=== PATIENT | female | born 1980 | race Caucasian/White ===

== ENCOUNTER → 2016-08-14 | Outpatient (CLI) | payer BC ==
[~2016-08-14] MED LIST: ACET-749 PO; BCPILLS PO; CYAN100020 PO; DOCU-94 PO; FERR1TAB23 PO; IBUP-1050 PO; MULTTAB58 PO; PRENTAB89 PO
== END | disposition home or self-care (01) ==
LOC: C.LAB1850 10:27
PROVIDERS: ATTEND Obstetrics & Gynecology
DX: O26.899 Other specified pregnancy related conditions, unspecified trimester (principal)

== ENCOUNTER → 2016-08-16 | Outpatient (CLI) | payer BC | END | disposition home or self-care (01) | LOC: C.LAB1850 15:31 | PROVIDERS: ATTEND Obstetrics & Gynecology | DX: O26.899 Other specified pregnancy related conditions, unspecified trimester (principal); Z3A.00 Weeks of gestation of pregnancy not specified ==

== ENCOUNTER → 2016-08-29 | Outpatient (CLI) | payer BC ==
[2016-08-29 15:59] LABS: URINE APPEARANCE TURBID (CLEAR); URINE BILIRUBIN NEG (NEG); URINE COLOR DK YELLOW; URINE EPITHELIAL CELL AUTO 20-30 /lpf (0-5); URINE NITRITE NEG (NEG); URINE PH 5.5 (4.5-7.5); URINE SPECIFIC GRAVITY 1.027 (1.000-1.030); UROBILINOGEN NEG (NEG)
[2016-08-29 16:09] LABS: MANUAL MICROSCOPIC REQUIRED? NO; REVIEW REQ? NO
== END | disposition home or self-care (01) ==
LOC: C.LABSPEC 15:25
PROVIDERS: ATTEND Obstetrics & Gynecology
DX: O09.519 Supervision of elderly primigravida, unspecified trimester (principal)

== ENCOUNTER → 2016-09-07 | Outpatient (CLI) | payer BC | END | disposition home or self-care (01) | LOC: C.PAPS 10:28 | PROVIDERS: ATTEND Obstetrics & Gynecology | DX: O09.511 Supervision of elderly primigravida, first trimester (principal); R87.616 Satisfactory cervical smear but lacking transformation zone ==

== ENCOUNTER → 2016-09-07 | Outpatient (CLI) | payer BC ==
[2016-09-07 10:56] LABS: BASO % 0.8 %; BASO ABS # 0.05 K/uL (0-0.2); COMPLETE YES; EOS % 1.2 %; IG% 0.3 %; LYMPH % 24.5 %; LYMPH ABS # 1.58 K/uL (1.2-3.4); MEAN CORPUSCULAR HEMOGLOBIN 30.9 pg (25-34); MEAN CORPUSCULAR HGB CONC 33.2 g/dl (32-36); MEAN PLATELET VOLUME 10.7 fL (7.4-10.4); MONO % 8.4 %; NEUT % 64.8 %; PLATELET COUNT 267 K/uL (130-400); RED BLOOD COUNT 3.98 M/uL (4.2-5.4); WHITE BLOOD COUNT 6.44 K/uL (4.8-10.8)
[2016-09-09 02:49] LABS: CHLAMYDIA TRACH RNA*** NOT DETECTED (NOT DETECTED); GC (NEIS GONORRHOEAE)RNA** NOT DETECTED (NOT DETECTED)
== END | disposition home or self-care (01) ==
LOC: C.LAB1850 09:11
PROVIDERS: ATTEND Obstetrics & Gynecology
DX: O09.519 Supervision of elderly primigravida, unspecified trimester (principal); Z3A.00 Weeks of gestation of pregnancy not specified

== ENCOUNTER → 2016-10-26 | Outpatient (CLI) | payer BC ==
[2016-10-26 13:44] LABS: GTGD 50 Grams
[2016-10-29 17:16] LABS: AFP CONCENTRATION 41.9 NG/ML; AFPTS GESTATIONAL AGE 16.1 WEEKS; AFPTS INSULIN DEP DIABETIC? NO; AFPTS MATERNAL WT 122 LBS; ALPHA-FETOPROTEIN RACE CAUCASIAN=W; HISTORY OF NTD NO; REPEAT SAMPLE? NO
== END | disposition home or self-care (01) ==
LOC: C.LAB1850 11:23
PROVIDERS: ATTEND Obstetrics & Gynecology
DX: O09.512 Supervision of elderly primigravida, second trimester (principal); Z3A.00 Weeks of gestation of pregnancy not specified

== ENCOUNTER → 2017-01-18 | Outpatient (CLI) | payer BC ==
[2017-01-18 17:52] LABS: MANUAL MICROSCOPIC REQUIRED? NO; REVIEW REQ? NO; URINE APPEARANCE CLEAR (CLEAR); URINE BILIRUBIN NEG (NEG); URINE COLOR YELLOW; URINE NITRITE NEG (NEG); UROBILINOGEN NEG (NEG)
== END | disposition home or self-care (01) ==
LOC: C.LABSPEC 17:25
PROVIDERS: ATTEND Obstetrics & Gynecology
DX: O09.513 Supervision of elderly primigravida, third trimester (principal)

== ENCOUNTER → 2017-01-18 | Outpatient (CLI) | payer BC ==
[2017-01-18 16:32] LABS: HEMATOCRIT 35.9 % (37-47)
[2017-01-18 19:08] LABS: GTGD 50 Grams
== END | disposition home or self-care (01) ==
LOC: C.LAB1850 15:28
PROVIDERS: ATTEND Obstetrics & Gynecology
DX: O09.513 Supervision of elderly primigravida, third trimester (principal)

== ENCOUNTER 2017-01-22 13:58 | Emergency (ER) | payer BC ==
[~2017-01-22] VITALS: Ht 165.1 cm; Wt 59.3 kg
[~2017-01-22 13:58] MED LIST changes: -ACET-749 PO; -DOCU-94 PO; -FERR1TAB23 PO; -PRENTAB89 PO
[2017-01-22 14:02] VITALS: Ht 165.1 cm; Wt 59.3 kg
--- NOTE | 2017-01-22 15:00 | EMERGENCY ROOM VISIT NOTE ---
History First contact with patient: 14:18 Chief Complaint: HEAD INJURY (MINOR) Stated Complaint: HIT HEAD, HEADACHE, VISION CHANGES History of Present Illness The patient is a 36 year old 28+5 week female who presents to the Emergency Room with complaints of head injury that started after hitting her head around 3am. Her headache started an hour after this but she managed to get to sleep an hour later. Then woke up with 6-7/10 severity headache. Pain has been persistent across the front of her head since then, bilateral temples. No LOC, remembers full event. She has associated fatigue, sensitivity to light and feels more sleepy than normal - although she notes these symptoms may also be related to her . She denies any dizziness, balance problems, vision problems, sensitivity to noise, numbness/tingling, fogginess, drowsiness, trouble falling asleep, irritability, sadness, mood change, nervousness, difficulty concentrating, difficulty remembering. Had concussion 2 years previously and it feels the same as that. No nausea or vomiting. No leg or arm weakness. Hit in face with volleyball 2 years previously - headache lasted for several days then concentration problems after that. Hx of migraines and tension headache. None during . Review of Systems See HPI for pertinent positives & negatives. A total of 10 systems reviewed and were otherwise negative. Past Medical/Surgical History Medical Problems: (1) Closed head injury with concussion Social History Smoking Status: Never Smoker Current/Historical Medications Scheduled Multivit-Min W/Fe-Fa ( And Iron), 1 TAB PO QAM Allergies Coded Allergies: Ciprofloxacin (Verified Allergy, Intermediate, RASH, 01/22/17) Penicillins (Verified Allergy, Intermediate, RASH, 01/22/17) Physical Exam Vital Signs Date Time Temp Pulse Resp B/P (MAP) Pulse Ox O2 Delivery O2 Flow Rate FiO2 01/22/17 14:02 36.7 89 16 93/69 97 Room Air Physical Exam VITAL SIGNS: were reviewed as above GENERAL: no acute distress SKIN: Warm dry and pink, no rashes HEAD: Normocephalic and atraumatic EYES: extraocular muscles intact without diplopia or pain, pupils equal and reactive to light, Panoptic ophthalmoscope showed sharp optic discs b/l. OROPHARYNX: non erythematous, clear and moist NECK: Supple, no adenopathy or meningismus LUNGS: No respiratory distress, clear to auscultation, no accessory muscle use HEART: Regular rate and rhythm, heart sounds 1+2, no murmurs ABDOMEN: Soft and nontender, bowel sounds normal, heart sounds present, consistent fundal height for 28 weeks EXTREMITIES: Warm and well perfused, no calf tenderness/swelling, no pedal edema. NEUROLOGICALLY: Awake alert and oriented without focal deficit. Cranial nerves 2 -12 intact. Cerebellar testing is within normal limits. There is no nystagmus. There is no facial droop. Speech is clear. Vision is grossly normal. Upper and lower limb motor and sensory examination intact. MUSCULOSKELETAL: Good muscle tone. No evidence of trauma Standardized assessment of concussion (SAC) Orientation 12/07 Immediate memory Concentration 10/07 Delayed recall 10/07 Total Medical Decision & Procedures ED Course 14:18 Complete history and physical performed 14:[address] Palomo who separately performed history and examination 15:20 Reassessed patient and discussed diagnosis and management plan for concussion. Stable for discharge. Medical Decision Prior records/ancillary studies reviewed. Triage Nursing notes reviewed. Additional history obtained from patient. The patient's history was concerning for traumatic head injury Differential diagnosis: Etiologies such as concussion, contusion, fracture, subdural hematoma, epidural hematoma, intraparenchymal hemorrhage, as well as other traumatic pathologies were entertained. Physical examination findings: As above. ER treatment provided: P.o. Tylenol 650mg PO It appears the patient has a concussion. I discussed the risks and the benefits of CT scanning. Clinically the patient is doing well and does not appear to have a significant underlying injury. The patient felt comfortable with conservative observation with the understanding if the clinical picture change that imaging may be necessary at a later time. I gave my usual and customary discussion regarding this issue. By the evaluation outlined above emergent etiologies such as fracture, subdural hematoma, epidural hematoma, intraparenchymal hemorrhage, as well as others were deemed relatively unlikely. The patient and her were informed about the findings as listed above. All questions were answered and she pleased with the management plan. Return instructions were outlined and the patient was discharged in stable condition. Outpatient Prescription Management: Acetaminophen 650mg PO PRN QID for pain. Referral: The patient was referred back to their primary care physician for follow-up in 2 to 3 days for a recheck of the current condition. Impression Primary Impression: Concussion Departure Information Dispostion Home / Self-Care Condition GOOD Referrals RV. Linares MD (PCP) Patient Instructions My [facility] Additional Instructions CONCUSSION DISCHARGE INSTRUCTIONS: What is a concussion? A concussion is a disturbance in the function of the brain caused by a direct or indirect force to the head. It results in a variety of symptoms like: headache, balance problems, nausea, vomiting, vision problems, hearing problems/ringing, drowsiness, irritability, and/or difficulty concentrating or remembering. A concussion may, or may not involve memory problems or loss of consciousness. Concussion Instructions: Stop and stay away from ALL physical activity until you are symptom free from: Headaches Balance problems Feeling "dinged" Poor concentration Drowsy Fatigued Rest and avoid strenuous activities for the next few days. Get 8-10 hours of sleep per night. Limit activities that involve significant concentration and attention during this time to speed your recovery. This includes studying, attending school, playing video games, and heavy reading. Your brain needs to rest. Eat right and eat often. Now is the time to feed your brain. Well balanced diets that avoid high sugar foods, sodas, caffeine, etc. are better for your brain. NO ALCOHOL OR DRUGS! Avoid stimulants like caffeine, red bull, mountain dew, "energy" drinks, etc. Tylenol(acetaminophen) may be used for headaches. Use 650g every 6 hours as needed. Avoid using more than 3250mg in a 24 hour period. Stepwise return to sports or exercise: You may progress to the next step after 24 hours if you are symptom free. If you experience symptoms, you must return to the previous stage and try again after another 24 hours of rest and being symptom free. Best case scenario is full contact game play in 7 days from the time of injury. Remember repeat concussions are worse than the first. Time invested in recovery will allow for better performance and less downtime in the future. If you have any questions see your hop trainer or make an appointment to see one of the team physicians. 1) No activity, complete rest for 3 days. Once all symptoms have resolved, report to the team physician or hop trainer to be cleared to progress to step 2. 2) Start light aerobic exercise, such as walking or stationary cycling, no resistance training permitted.(Day 4) 3) Sport specific exercises. Add light resistance slowly. Go slow to allow your body to readapt. (Day 5) 4) Non-contact full speed practice. (Day 6) 5) Full contact practice and/or game play.(Day 7) FOLLOW UP INSTRUCTIONS: You should have a follow up with your primary doctor in 3-5 days regarding your injury. POST CONCUSSIVE SYNDROME: Occasionally patients can experience a postconcussive syndrome which includes prolonged headaches and memory difficulties. This may occur over the next several days, weeks or rarely, even months. It is important to have a primary care physician follow-up in order to help if the situation develops. Problems could arise over the next 24 to 48 hours. You should not be left alone and MUST go to the hospital immediately if you: -Have a headache that suddenly gets worse. -Are very drowsy or cannot be woken up from sleep. -Can't recognize people or places. -Have repeated vomiting. -Behave unusually, seemed confused, or start acting irritable. -Have a seizure (arms and legs start jerking uncontrollably). -Have weak or numb arms or legs. -Are unsteady on your feet -Experience slurred speech or difficulty speaking. Resident Tracking Resident Involvement: Resident Care Provided Care Provided: Adult ED Problem Qualifiers Primary Impression: Concussion Encounter type: initial encounter Loss of consciousness presence/duration: without LOC Qualified Codes: S06.0X0A - Concussion without loss of consciousness, initial encounter
[2017-01-22] MEDS ORDERED: ACETAMINOPHEN 325 MG TAB PO STA (15:01)
[2017-01-22] MEDS ORDERED: PRENTAB89 PO (15:21)
--- NOTE | 2017-01-22 15:24 | EMERGENCY ROOM VISIT NOTE ---
ED Visit Note First contact with patient: 14:18 Resident Physician Supervision Note: I was present with Dr. Hitchcock during the history and exam. I discussed the case with the resident and agree with the findings and plan as documented in the note. Documented By: Preston Palomo
[2017-01-22 16:30] VITALS: BP 99/67; PULSE 87; TEMP 36.7; O2SAT 97
== END 2017-01-22 16:30 | disposition home or self-care (01) ==
LOC: C.EDB 14:01 → C.EDA 16:30
DX: S06.0X0A Concussion without loss of consciousness, initial encounter (principal); Z3A.28 28 weeks gestation of pregnancy; W22.8XXA Striking against or struck by other objects, initial encounter

== ENCOUNTER → 2017-03-21 | Outpatient (CLI) | payer BC ==
[~2017-03-21] MED LIST changes: +ACET-749 PO; -BCPILLS PO; -CYAN100020 PO; +DOCU-94 PO; +FERR1TAB23 PO; -IBUP-1050 PO; -MULTTAB58 PO; +PRENTAB89 PO
== END | disposition home or self-care (01) ==
LOC: C.LABSPEC 17:37
PROVIDERS: ATTEND Obstetrics & Gynecology
DX: O09.513 Supervision of elderly primigravida, third trimester (principal); Z3A.00 Weeks of gestation of pregnancy not specified

== ENCOUNTER 2017-04-16 05:16 | Inpatient (IN) | payer BC ==
[~2017-04-16] VITALS: Ht 165.1 cm; Wt 64.5 kg
[~2017-04-16 05:16] MED LIST changes: -ACET-749 PO; -DOCU-94 PO; -FERR1TAB23 PO
[2017-04-16] MEDS ORDERED: LACTATED RINGER'S 1000ML 1,000 ML IV PRN (05:38)
[2017-04-16] MEDS ORDERED: LACTATED RINGER'S 1000ML 1,000 ML IV SCH (05:38)
[2017-04-16 06:08] LABS: MEAN CELL VOLUME 96.2 fL (80-100); MEAN CORPUSCULAR HEMOGLOBIN 33.7 pg (25-34); PLATELET COUNT 196 K/uL (130-400); RED BLOOD COUNT 4.16 M/uL (4.2-5.4); WHITE BLOOD COUNT 12.64 K/uL (4.8-10.8)
[2017-04-16 06:25] VITALS: Ht 165.1 cm; Wt 64.5 kg
[2017-04-16] MEDS ORDERED: EpHEDrine SULFATE INJ 50 MG/ML AMP ONE (06:34)
[2017-04-16] MEDS ORDERED: BUPIVACAINE 0.25% 30 ML VIAL ONE (06:34)
[2017-04-16] MEDS ORDERED: FENTANYL 2MCG/ML ROPIV 1.25MG/ML 100ML BAG EPI ONE (06:34)
[2017-04-16] MEDS ORDERED: FENTANYL CITRATE INJ 50 MCG/1 ML 2 ML VIAL ONE (06:35)
[2017-04-16] MEDS ORDERED: LACTATED RINGER'S 1000ML 500 ML IV PRN ×2 (07:55→09:19)
[2017-04-16] MEDS ORDERED: NALOXONE HCL INJ 1 MG in SODIUM CHLORIDE 0.9% 1000ML 1,000 ML IV PRN (07:55)
[2017-04-16] MEDS ORDERED: PROMETHAZINE HCL INJ 25 MG in SODIUM CHLORIDE 0.9% 50ML 50 ML IV PRN (08:00)
[2017-04-16] MEDS ORDERED: ONDANSETRON INJ 2 MG/ML 2 ML VIAL IV PRN (08:00)
[2017-04-16] MEDS ORDERED: NALOXONE HCL INJ 0.4 MG/1 ML VIAL/CARP IV PRN (08:00)
[2017-04-16] MEDS ORDERED: FENTANYL 2MCG/ML ROPIV 1.25MG/ML 100ML BAG EPI PRN (08:00)
[2017-04-16] MEDS ORDERED: NALBUPHINE HCL INJ 10 MG/ML AMP IV PRN (08:00)
[2017-04-16] MEDS ORDERED: EpHEDrine SULFATE INJ 50 MG/ML AMP IV PRN (08:00)
[2017-04-16] MEDS ORDERED: DiphenhydrAMINE HCL 50 MG/ML VIAL IV PRN (08:00)
[2017-04-16] MEDS ORDERED: OXYTOCIN 30 UNITS/500ML NSS IV PRN ×2 (09:30→12:45)
[2017-04-16] MEDS ORDERED: BENZOCAINE 20% AER SPR 82.5 GM CAN EXT PRN (12:45)
[2017-04-16] MEDS ORDERED: DIPHTHERIA/TETANUS/PERTUSSIS 0.5 ML SYR/VIAL IM. ONE (12:45)
[2017-04-16] MEDS ORDERED: ACETAMINOPHEN 325 MG TAB PO PRN (12:45)
[2017-04-16] MEDS ORDERED: SUPERCREAM 0.870 % 15GM JAR EXT PRN (12:45)
[2017-04-16] MEDS ORDERED: ACETAMINOPHEN/CODEINE 300/30MG TAB PO PRN (12:45)
[2017-04-16] MEDS ORDERED: OXYTOCIN INJ 20 UNITS in LACTATED RINGER'S 1000ML 1,000 ML IV SCH (12:45)
[2017-04-16] MEDS ORDERED: LANOLIN OINT EXT PRN ×2 (12:45)
[2017-04-16] MEDS ORDERED: HYDROCORTISONE ACETATE 25 MG SUPP PR PRN (12:45)
[2017-04-16] MEDS ORDERED: MISOPROSTOL 200 MCG TAB PR ONE (13:00)
[2017-04-16 13:25] LABS: HEMATOCRIT 30.9 % (37-47)
--- NOTE | 2017-04-16 13:32 | Vaginal Delivery Summary ---
Vaginal Delivery Summary The patient's heart rate monitor notably had deep decelerations. For that reason a vaginal exam was performed revealing complete dilation, complete effacement and +3 station. Second stage was begun. Patient was repositioned and oxygen was applied. Pitocin was discontinued. During pushing, variable decelerations sometimes to the 60s were noted. The patient continued her maternal expulsive efforts. With continued deep variable decelerations the patient was readied for vacuum-assisted vaginal delivery. Her bladder had been drained. Informed consent was obtained. Meconium had previously been noted. Pediatrics was in attendance. The Kiwi vacuum was applied. Over one push and one pull of the vacuum with no pop offs, the cephalic was delivered. A loose nuchal 1 was noted and reduced. Shoulders and body were delivered with ease and a body cord was noted. The was vigorous and cried at . Cord was doubly clamped and cut on the maternal abdomen. The was taken to the radiant warmer for drying and attention. Cord blood and cord gases were obtained. Attention was turned to the patient's vagina where bilateral sulcal tears and a partial third-degree laceration was noted. Lateral sulcal tears were begun to be repaired with 3-0 Vicryl. Visualization was obtained using a retractor. The anal sphincter capsule was reapproximated with interrupted sutures of 2-0 Vicryl. During the course of this repair the placenta seemingly was ready for delivery. This was suspected due to increased bleeding. With traction on the umbilical cord the placenta was delivered however was only partially delivered. The operators hand was placed into the uterine cavity and the uterus was cleared of remaining placental tissue and membranes. Bimanual massage took place. IV dilute Pitocin was given. Hemostasis was inadequate and therefore 800 g of rectal Cytotec was administered. The uterus was swept with the tape edge machine operator's hand at least 2 additional times to ensure removal of any retained products of conception. There was one area of concern in the left aspect of the uterus for possible retained tissue. For that reason the anterior lip of the cervix was grasped with a ring forcep and a gentle curettage took place with the enrique curet. Using ring forceps the cervix was also inspected circumferentially with no evidence of lacerations. No significant remaining tissue was removed. The uterine tone began to improve. Lacerations were reinspected and the sulcal tears need to be reapproximated with 3-0 Vicryl. The anal capsule had already been supported and no sutures remained intact. The remainder of the perineal repair took place in the usual fashion with 3-0 Vicryl. During the course of this hemorrhage the patient's blood pressure dropped significantly. Anesthesia was by the bedside and administered ephedrine. A stat H&H was ordered as well as a type and screen. EBL 800 cc's. Bojorquez catheter was placed to evaluate urine output and also to keep the bladder contracted. We await the results of the H&H and some serial blood pressures which had improved and closely monitor the patient. Given the uterine exploration times multiple, the patient will be given IV antibiotics for 24 hours.
[2017-04-16] MEDS ORDERED: CEFAZOLIN IV 2,000 MG in DEXTROSE 5% 50ML 50 ML IV ONE (14:00)
--- NOTE | 2017-04-16 14:47 | Anesthesia Procedure Note ---
Anesthesia Epidural Removal Nt Date & Time Apr 16, 2017 at 14:47 Vital Signs Pain Intensity: 9.0 Notes Mental Status: alert / awake / arousable, participated in evaluation Nausea / Vomiting: adequately controlled Pain: adequately controlled Airway Patency, RR, SpO2: stable & adequate BP & HR: stable & adequate Hydration State: stable & adequate Neuraxial Anesthesia: was administered, sensory block is resolving Anesthetic Complications: no major complications apparent, pt satisfied with anesthetic care Epidural: removed without complications, with tip intact
[2017-04-16] MEDS: IBUPROFEN 600 MG TAB PO PRN ×2 (15:25→19:47)
[2017-04-16 19:00] VITALS: BP 117/79; PULSE 74; TEMP 37
[2017-04-16] MEDS: DOCUSATE SODIUM 100 MG CAP PO SCH (19:46)
--- NOTE | 2017-04-16 22:02 | Discharge Instructions ---
Discharge Instructions Date of Service Apr 16, 2017. Admission Reason for Admission: LABOR Discharge Discharge Diagnosis / Problem: DELIVERY VAGINAL Discharge Goals Goal(s): Routine recovery after delivery Medications Continue Dispensed Medications: supercream, dermaplast, tucks, lansinoh Activity Recommendations Activity Limitations: per Instructions/Follow-up section . Instructions / Follow-Up Instructions / Follow-Up ACTIVITY RECOMMENDATIONS: * Gradual return to full activity over the next 2-3 weeks. * No lifting - nothing heavier than baby over the next 2-3 weeks. * Do not engage in vigorous exercise, sexual activity or sports until cleared by your physician. * Do not drive or operate any motorized equipment until cleared by your physician. * You may shower/bathe daily. MEDICATIONS: For discomfort or pain, you may use Acetaminophen (Tylenol), Ibuprofen (Advil), or Naproxen (Aleve) following the package directions. For constipation you may use Colace following the package directions. BREAST CARE: If you are not breast feeding: * Wear a supportive bra 24 hours a day for one to two weeks. * Avoid stimulating your breasts and nipples as much as possible during the first few weeks after delivery. * When taking a shower, have the warm water hit your back, not breasts. * When your breasts feel full, apply ice packs. Usually three to four times a day helps ease the discomfort. * Take a mild pain medication (Tylenol / Motrin) when you are uncomfortable. If breast feeding: * Use breast milk to lubricate nipples. Lansinoh cream may be used for sore nipples. You do not need to remove cream prior to breast feeding. If using a different brand of cream, check the label for directions regarding removal of cream prior to nursing. * Wear a supportive bra. * If having problems with breasts or breast feeding, call a sap pp consultant or your health care provider. EPISIOTOMY CARE: After delivery, if you have an episiotomy (stitches), the following steps will ease discomfort and aid healing. * For the first 24 hours after delivery, place ice packs next to your episiotomy to help reduce swelling. * After the first 24 hour-period, sitz baths, either portable or in the tub, are suggested. A shower with a shower arm sprayed over the episiotomy may be comforting. * Vashti care should be done after each voiding and bowel movement. Squirt warm water from a plastic bottle over the perineum (region of the body between the anus and urinary opening) and pat dry. * Use Dermoplast to ease discomfort. Shake container. [place] directly over the episiotomy. Place a Tucks on a clean sanitary pad next to your episiotomy. SPECIAL CARE INSTRUCTIONS: When you are discharged from the hospital, it is important for you to follow the instructions listed below: * During the first week at home, you should be able to care for yourself and your baby. In addition, the usual light household activities are encouraged. * Limit your activities to the way you feel. Do not try to clean the house or move furniture. Be sensible. * If you actively engage in sports and have done so up until the time of your delivery, you may resume these activities as soon as you feel able. This may take up to one month or even longer. Use good judgment. * Continue to take your vitamins for at least six weeks after the of your baby. * Your diet need not be limited unless you were on a special diet before your delivery. Breast-feeding mothers need around 2500 calories per day and at least 64-80 ounces of fluid per day (8 to 10 glasses). * You should eat foods from the four major food groups. Crash diets or fad diets are to be avoided. Eating lean meats, fresh fruits and vegetables, low-fat dairy products, high fiber foods and a regular exercise program, will help you get back to your pre- weight without putting your health at risk. * Constipation is sometimes a problem after delivery. Take a mild laxative as needed. If breast feeding, Milk of Magnesia is acceptable to use. You may use a suppository or Fleets enema if no episiotomy. * A daily shower or tub bath is suggested. Be sure to thoroughly and gently dry the perineum. * A bloody vaginal discharge will usually continue until around four weeks post . A small amount of bleeding may continue for as long as six weeks. Vaginal discharge changes from the bright red bleeding after delivery to pink then brownish and finally yellowish-pink before becoming white and disappearing. * Bleeding may increase with activity. Your first period may come in 4-8 weeks. If you are breast feeding, your period may be delayed even longer. * [place] (sex) can begin whenever both you and your partner feel comfortable and do not have any form of genital infection. It is recommended that you wait at least six weeks for internal and external healing to occur. If you have questions, please talk to your health care practitioner. A condom should be used to prevent infection and . * Foreplay, gentle intercourse and lubrication is very important the first several times to prevent pain. A water-based lubricant such as K-Y jelly or Astroglide may be used. * If you have RH negative blood and your baby is RH positive, you will receive RHOGAM by injection prior to discharge. The nurse will give you a card to keep with you that has the date and place that you received RHOGAM after delivery. * During your care, you had a Rubella screen done to check for the presence of rubella antibodies in your blood. If your test was negative, you will receive a Rubella vaccine prior to discharge. This vaccine may cause a fever, soreness at the injection site and flu-like symptoms. If these symptoms persist, notify your health care practitioner. is not advised for one month after a Rubella vaccine. * Verbalizes understanding of car seat law as reviewed with patient nursing. * Car Seat hand-out given and reviewed with patient by nursing. * Shaken baby information reviewed with patient by nursing. Call you doctor if: * Heavy bleeding (saturating several pads an hour) or passing clots the size of your fist. * A fever >101 degrees F (38.3 degrees C) on two occasions four hours apart and /or chills. * Unusual pain in the pelvic or vaginal areas. * "Baby Blues" lasting longer than two weeks. If you have any questions or concerns, call your health care practitioner at . FOLLOW UP VISIT: * Please call the office at to schedule a 6 week examination. It is important you keep this appointment. It is important for you to make arrangements for either yearly or twice yearly check-ups thereafter. Current Hospital Diet Patient's current hospital diet: Vegetarian Diet, Regular OB Diet Discharge Diet Recommended Diet: Regular Diet Pending Studies Studies pending at discharge: no Medical Emergencies . Who to Call and When: Medical Emergencies: If at any time you feel your situation is an emergency, please call [phone] immediately. . Non-Emergent Contact Non-Emergency issues call your: Primary Care Provider . . "Provider Documentation" section prepared by Cheri Vera. . VTE Core Measure Inpt VTE Proph given/why not?: Treatment not indicated Resident Tracking Resident Involvement: Resident Care Provided Care Provided: OB Delivery
[2017-04-16] MEDS: CEFAZOLIN IV 2,000 MG in DEXTROSE 5% 50ML 50 ML IV SCH (22:41)
[2017-04-16] MEDS: ACETAMINOPHEN/CODEINE 300/30MG TAB PO PRN (22:43)
[2017-04-16 23:30] VITALS: BP 123/81; PULSE 70; TEMP 37
[2017-04-17] MEDS: IBUPROFEN 600 MG TAB PO PRN ×3 (03:03→20:39)
[2017-04-17 03:10] VITALS: BP 122/81; PULSE 65; TEMP 36.4
[2017-04-17] MEDS: CEFAZOLIN IV 2,000 MG in DEXTROSE 5% 50ML 50 ML IV SCH ×2 (06:18→14:17)
--- NOTE | 2017-04-17 06:52 | Progress Note ---
Subjective Apr 17, 2017. Subjective conversation w/ patient, physical exam, chart review, lab review Ambulation: ambulating normally Voiding: no voiding problems Passing Gas: Yes Diet Tolerance: Regular Diet Lochia: Moderate Feeding Type: Breast Feeding Pain: controlled Review of Systems Respiratory: No shortness of breath Cardiac: No chest pain Abdomen: + nausea, No vomiting Female : No dysuria Objective Vital Signs Date Time Temp Pulse Resp B/P (MAP) Pulse Ox O2 Delivery O2 Flow Rate FiO2 04/17/17 03:10 36.4 65 16 122/81 04/16/17 23:30 Room Air 04/16/17 23:30 37.0 70 16 123/81 04/16/17 19:00 Room Air 04/16/17 19:00 37.0 74 16 117/79 Physical Exam General Appearance: WELL-APPEARING, WD/WN, NO APPARENT DISTRESS Respiratory/Chest: lungs clear, normal breath sounds, no respiratory distress Cardiovascular: regular rate, rhythm, no gallop, no JVD Abdomen: normal bowel sounds, soft Fundus: Firm, Tender (appropriately tender), Relation to Umbilicus (1 below U) Extremities: no calf tenderness Laboratory Results Last 24 Hours Test 04/16/17 12:28 04/17/17 06:35 Hemoglobin 10.4 g/dL Hematocrit 30.9 % Assessment and Plan Problem List Medical Problems: (1) Concussion Status: Acute Post- Day#: 1 Continue Routine Care: - Vital Signs reviewed and WNL. - Hgb pending - Blood Type: O+, GBS-, Rubella non-immune. Will need MMR vaccine prior to discharge. - Pt is doing well clinically. - Encourage Ambulation, Monitor and Control pain with Motrin PRN, Resume regular diet, Monitor Lochia - Encourage Breast Feeding. - Continue routine post care. SANJIV VERA PGY1 FM RESIDENT Resident Physician Supervision Note: I was present with Dr. Vera during the history and exam. I discussed the case with the resident and agree with the findings and plan as documented in the note. Any exceptions or clarifications are listed here: Patient notes frontal MINOR this am and wants pain meds. She is getting her 2nd dose of antibiotics. She will have one more planned. She is having minimal lochia and uterus as noted per resident. Non tender to me. HGB this am 7.1 but pt tolerating it. Had PPH and now severe anemia. Will see how she does today. Currently ambulating to BR without problem, no dizzy or lightheadedness. Documented By: Jaz Collazo Resident Tracking Resident Involvement: Resident Care Provided Care Provided: OB Delivery
[2017-04-17 07:13] LABS: HEMATOCRIT 21.6 % (37-47); MEAN CELL VOLUME 95.2 fL (80-100); MEAN CORPUSCULAR HEMOGLOBIN 33.9 pg (25-34); MEAN CORPUSCULAR HGB CONC 35.6 g/dl (32-36); MEAN PLATELET VOLUME 10.8 fL (7.4-10.4); PLATELET COUNT 122 K/uL (130-400); RED BLOOD COUNT 2.27 M/uL (4.2-5.4); WHITE BLOOD COUNT 16.86 K/uL (4.8-10.8)
[2017-04-17 07:14] VITALS: BP 116/77; PULSE 62; TEMP 36.8
[2017-04-17] MEDS: ACETAMINOPHEN/CODEINE 300/30MG TAB PO PRN (07:17)
[2017-04-17] MEDS ORDERED: MEASLES, MUMPS & RUBELLA VIRUS VIAL SQ. ONE (07:45)
[2017-04-17] MEDS: DOCUSATE SODIUM 100 MG CAP PO SCH ×2 (09:00→20:39)
[2017-04-17 15:30] VITALS: BP 106/68; PULSE 85; TEMP 37.1; O2SAT 98
[2017-04-18 00:37] VITALS: BP 110/68; PULSE 76; TEMP 37.1
[2017-04-18] MEDS: IBUPROFEN 600 MG TAB PO PRN ×2 (05:16→09:30)
[2017-04-18] MEDS: ACETAMINOPHEN/CODEINE 300/30MG TAB PO PRN ×2 (06:41→12:07)
[2017-04-18] MEDS ORDERED: ACET-749 PO (06:48)
--- NOTE | 2017-04-18 06:54 | Progress Note ---
Subjective Apr 18, 2017. Subjective conversation w/ patient, physical exam, chart review, lab review Ambulation: ambulating normally Voiding: no voiding problems Passing Gas: Yes Diet Tolerance: Regular Diet Lochia: Moderate Feeding Type: Breast Feeding Pain: moderate Review of Systems Respiratory: + shortness of breath Cardiac: No chest pain Abdomen: No nausea, No vomiting Female : No dysuria Objective Vital Signs Date Time Temp Pulse Resp B/P (MAP) Pulse Ox O2 Delivery O2 Flow Rate FiO2 04/18/17 00:39 Room Air 04/18/17 00:37 37.1 76 16 110/68 04/17/17 15:30 98 Room Air 04/17/17 15:30 37.1 85 16 106/68 04/17/17 08:00 Room Air 04/17/17 07:14 36.8 62 16 116/77 Physical Exam General Appearance: WELL-APPEARING, WD/WN, NO APPARENT DISTRESS Respiratory/Chest: lungs clear, normal breath sounds, no respiratory distress Cardiovascular: regular rate, rhythm Abdomen: normal bowel sounds, soft Fundus: Firm, Non-Tender, Relation to Umbilicus (2 below U) Extremities: no calf tenderness Assessment and Plan Post- Day#: 2 Continue Routine Care: - Vital Signs reviewed and WNL. - Hgb 7.7. (10.4 yesterday). Recommend taking iron with stool softener. - Blood Type: O+, GBS-, Rubella non-immune. Will need MMR vaccine prior to discharge. - Pt is doing well clinically. - Encourage Ambulation, Monitor and Control pain with Motrin PRN, Resume regular diet, Monitor Lochia - Encourage Breast Feeding. - Pt counselled on discharge instructions. Recommend taking iron with stool softener. SANJIV JOSUE PGY1 FM RESIDENT Resident Physician Supervision Note: I interviewed and examined the patient. Discussed with Dr. josue and agree with findings and plan as documented in the note. Any exceptions or clarifications are listed here: [None] Documented By: Kel Drake Resident Tracking Resident Involvement: Resident Care Provided Care Provided: OB Delivery
[2017-04-18] MEDS ORDERED: DOCU-94 PO (07:08)
[2017-04-18] MEDS ORDERED: FERR1TAB23 PO (07:08)
[2017-04-18] MEDS ORDERED: MEASLES, MUMPS & RUBELLA VIRUS VIAL SQ. ONE (07:15)
[2017-04-18] MEDS: DOCUSATE SODIUM 100 MG CAP PO SCH (08:03)
[2017-04-18 08:25] VITALS: BP 120/82; PULSE 94; TEMP 37
[2017-04-18 14:43] VITALS: BP_DIAS 82; PULSE 94; TEMP 37
== END 2017-04-18 15:30 | disposition home or self-care (01) | DRG 775 ==
LOC: C.OPB 05:16 → C.LD 05:16 → C.OPB 05:40 → C.LD 05:40 → C.OBG 19:15
PROVIDERS: ADMIT Obstetrics & Gynecology; ATTEND Obstetrics & Gynecology
PROC: 10E0XZZ Delivery of Products of Conception, External Approach (ICD-10-PCS; principal; 2017-04-16)
PROC: 0DQR0ZZ Repair Anal Sphincter, Open Approach (ICD-10-PCS; principal; 2017-04-16)
DX: O70.20 Third degree perineal laceration during delivery, unspecified (principal); O69.81X1 Labor and delivery complicated by cord around neck, without compression, fetus 1; O09.523 Supervision of elderly multigravida, third trimester; Z37.0 Single live birth; Z3A.40 40 weeks gestation of pregnancy

== ENCOUNTER → 2017-05-10 | Outpatient (CLI) | payer BC ==
[~2017-05-10] MED LIST changes: +ACET-749 PO; +DOCU-94 PO; +FERR1TAB23 PO
[2017-05-10 15:30] LABS: URINE APPEARANCE CLOUDY (CLEAR); URINE BILIRUBIN NEG (NEG); URINE COLOR DK YELLOW; URINE EPITHELIAL CELL AUTO 0-5 /lpf (0-5); URINE NITRITE POS (NEG); URINE SPECIFIC GRAVITY 1.015 (1.000-1.030); UROBILINOGEN NEG (NEG)
[2017-05-10 15:32] LABS: MANUAL MICROSCOPIC REQUIRED? NO; REVIEW REQ? NO
== END | disposition home or self-care (01) ==
LOC: C.LAB1850 14:02
PROVIDERS: ATTEND Obstetrics & Gynecology
DX: R35.0 Frequency of micturition (principal)

== ENCOUNTER → 2017-06-14 | Outpatient (CLI) | payer BC ==
[2017-06-14 14:25] LABS: URINE APPEARANCE CLEAR (CLEAR); URINE BILIRUBIN NEG (NEG); URINE COLOR YELLOW; URINE EPITHELIAL CELL AUTO 0-5 /lpf (0-5); URINE NITRITE NEG (NEG); URINE PH 5.5 (4.5-7.5); URINE SPECIFIC GRAVITY 1.012 (1.000-1.030); UROBILINOGEN NEG (NEG)
[2017-06-14 14:30] LABS: MANUAL MICROSCOPIC REQUIRED? NO; REVIEW REQ? NO
== END | disposition home or self-care (01) ==
LOC: C.LABSPEC 13:51
PROVIDERS: ATTEND Obstetrics & Gynecology
DX: R39.9 Unspecified symptoms and signs involving the genitourinary system (principal)

== ENCOUNTER → 2017-09-12 | Outpatient (CLI) | payer OTHER | END | disposition home or self-care (01) | LOC: C.PATHSPEC 15:40 | PROVIDERS: ATTEND Obstetrics & Gynecology | DX: N81.9 Female genital prolapse, unspecified (principal) ==

== ENCOUNTER 2022-05-14 08:35 | Inpatient (IN) ==
[2022-05-14] MEDS ORDERED: LIDOCAINE 1% LOCAL 20 ML VIAL INFIL PRN (09:18)
[2022-05-14] MEDS ORDERED: OXYTOCIN 30 UNITS/500 ML BAG IV PRN ×3 (09:18→17:24)
--- NOTE | 2022-05-14 09:23 | History & Physical Report ---
Date of Service May 14, 2022 Assessment & Plan (1) Active labor at term: (2) Elderly multigravida: Plan admit, labs, iv, covid test. desires epidural, once comfortable will plan arom. fhts categ 1. History of Present Illness Chief Complaint: labor Primary Care Provider: Kaitlynn Viramontes MD 41yo at 39wks egphilippe presents to L&D with regular ctx. Notes on and off ctx since midnight. No rom. Some bloody show. +FM. PNC c/b 1. AMA 2. History of PPH 3. Family history of CHD, normal echo 4. Rubella non immune PNL rhpos, ri, gbs neg OBH: x 1. vacuum GYNH: nl paps Allergies Allergy/AdvReac Type Severity Reaction Status Date / Time Cipro Allergy Intermediate RASH Verified 04/18/17 08:03 ciprofloxacin Allergy Intermediate RASH Verified 05/14/22 08:59 Penicillins Allergy Intermediate RASH Verified 05/14/22 08:59 Home Medications Medication Instructions Recorded Confirmed Type prenat.vits,kirill,mlv-rmnu-myymq 1 tab PO DAILY 09/13/21 05/14/22 History mecobalamin (vitamin B12) 1,000 1,000 mcg PO DAILY #90 tabs 10/17/21 05/14/22 Rx mcg chewable tablet Patient History Medical History (Updated 05/14/22 @ 09:22 by Jaz Collazo MD, FACOG) Closed head injury with concussion Cognitive decline Dizziness Health care maintenance History of concussion History of depression History of varicella Hx of acne Hx of cardiac murmur Hx of migraines Hx of rosacea Spasm of thoracic back muscle Tietze syndrome Surgical History H/O elbow surgery H/O oral surgery Family History Grandfather (Paternal) Bone cancer Grandmother (Maternal) Stroke Myocardial infarction Brother Congenital heart disease Aunt Diabetes Leukemia Breast cancer Mother Heart murmur Hypertension Depression Grandfather (Maternal) Prostate cancer Father Depression Social History Smoking Status: Never smoker Hx Alcohol Use: Yes Alcohol Intake Frequency Comment: social Hx Substance Use: No Preferred Language: Moroccan Communication Ability: Effective Lining Cutter Required: No Beliefs That Will Affect Care: None marital status: marital status details: Nick Figueroa (40) [phone] Current Living Situation: Spouse Current Living Situation Comment: , son and dog current occupational status: employed 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 Other Information That Helps Us Care for You: No Feels Safe at Home: Yes Safety Concerns: Feels Safe At This Time Assistive Devices: None Review of Systems as per Subjective / HPI Physical Exam Constitutional: WD/WN, vitals as above Respiratory: normal respiratory effort, lungs clear to auscultation Cardiovascular: Rate/Rhythm: regular rate and regular rhythm Gastrointestinal (Abdomen): soft gravid nt efw 6-7# Musculoskeletal: no edema nontender calves Neurologic: grossly normal Psychiatric: A+Ox3, euthymic affect Genitourinary: Manual OB Exam: + cervical dilation 6 cm, + cervical effacement 100% and + station -1 OB Exam Monitor Tracing: + external FHT monitor used, + external uterine monitor used (q5-6), + category I and + normal FHT variability Results & Data ([facility]) Vital Signs (Past 12 Hours) Vital Signs Temp Pulse Resp BP 05/14/22 08:45 20 05/14/22 08:45 98.4 F 20 05/14/22 08:47 65 131/69 Coding Level of Care Code None Diagnoses Active labor at term Elderly multigravida O09.529
[2022-05-14] MEDS: LACTATED RINGER'S 1,000 ML IV PRN ×2 (09:36→10:32)
[2022-05-14] MEDS ORDERED: SODIUM CHLORIDE 0.9% INJ 10 ML VIAL ONE (09:46)
[2022-05-14] MEDS ORDERED: ePHEDrine sulfate 50 MG/ML AMP ONE (09:46)
[2022-05-14] MEDS ORDERED: fentaNYL citrate 100 MCG/2 ML VIAL ONE (09:46)
[2022-05-14] MEDS ORDERED: LIDOCAINE 2%/EPINEPHRINE 1:200,000 20 ML SDV ONE (09:47)
[2022-05-14] MEDS ORDERED: BUPIVACAINE 0.25% 30 ML VIAL ONE (09:47)
[2022-05-14] MEDS ORDERED: fentaNYL 2MCG/ML ROPIVACAINE 1.25MG/ML 100 ML BAG EPI ONE (09:47)
[2022-05-14 09:55] LABS: Hematocrit (blood only) 35.8 % (34.1-44.9); Hemoglobin 12.5 g/dl (12.0-16.0); Mean Corpuscular Hemoglobin 31.9 pg (25.0-34.0); Mean Corpuscular Hgb Conc 34.9 g/dL (32.0-36.0); Mean Corpuscular Volume 91.3 fL (80.0-100.0); Mean Platelet Volume 11.2 fL (9.4-12.3); Platelet Count 197 K/uL (130-400); RDW Coefficient of Variation 14.2 % (11.5-14.5); RDW Standard Deviation 47.5 fL (36.4-46.3); Red Blood Count 3.92 M/uL (3.93-5.22); White Blood Count 10.05 K/ul (4.8-10.8)
--- NOTE | 2022-05-14 10:14 | Anesthesiology Consultation ---
Date of Service May 14, 2022 Assessment & Plan (1) Encounter for pre-operative examination: Chart Review Chart Review: Acceptable Risk for Labor Epidural History Height/Weight Height: 5 ft 5 in Weight: 53.07 kg Allergies Allergy/AdvReac Type Severity Reaction Status Date / Time Cipro Allergy Intermediate RASH Verified 04/18/17 08:03 ciprofloxacin Allergy Intermediate RASH Verified 05/14/22 08:59 Penicillins Allergy Intermediate RASH Verified 05/14/22 08:59 Medications Home Medications Medication Instructions Recorded Confirmed Last Taken prenat.vits,kirill,iko-aylx-dcfjx 1 tab PO DAILY 09/13/21 05/14/22 05/14/22 09:00 mecobalamin (vitamin B12) 1,000 1,000 mcg PO DAILY #90 tabs 10/17/21 05/14/22 05/14/22 09:00 mcg chewable tablet Active Medications Generic Name Dose Route Start Last Admin Trade Name Freq PRN Reason Stop Dose Admin Lactated Ringer's 1,000 mls @ 125 mls/hr 05/14/22 09:18 05/14/22 09:36 Lr IV 05/16/22 09:17 999 mls/hr .Q8H PRN Administration L&D Protocol Protocol Past Medical History Medical History Closed head injury with concussion Cognitive decline Dizziness Health care maintenance History of concussion History of depression History of varicella Hx of acne Hx of cardiac murmur Hx of migraines Hx of rosacea Spasm of thoracic back muscle Tietze syndrome Past Family History Family History Grandfather (Paternal) Bone cancer Grandmother (Maternal) Stroke Myocardial infarction Brother Congenital heart disease Aunt Diabetes Leukemia Breast cancer Mother Heart murmur Hypertension Depression Grandfather (Maternal) Prostate cancer Father Depression Past Surgical History Surgical History H/O elbow surgery H/O oral surgery Social History Smoking Status: Never smoker Hx Alcohol Use: Yes Hx Substance Use: No substance use type: does not use Physical Exam Vital Signs Last Vital Signs Temp 36.9 C 05/14/22 08:45 Pulse 66 05/14/22 10:08 Resp 20 05/14/22 08:45 BP 131/69 05/14/22 08:47 Pulse Ox 96 05/14/22 10:08 Testing Laboratory Results 05/14/22 09:36
[2022-05-14] MEDS ORDERED: fentaNYL 2MCG/ML ROPIVACAINE 1.25MG/ML 100 ML BAG EPI PRN (10:42)
[2022-05-14] MEDS ORDERED: ONDANSETRON INJ 2 MG/ML 2 ML VIAL IV PRN (10:42)
[2022-05-14] MEDS ORDERED: ePHEDrine sulfate 50 MG/ML AMP IV PRN (10:42)
[2022-05-14] MEDS ORDERED: NALOXONE HCL 1 MG in SODIUM CHLORIDE 0.9% 1000ML 1,000 ML IV PRN (10:42)
[2022-05-14] MEDS ORDERED: NALOXONE HCL 0.4 MG/1 ML VIAL/CARP IV PRN (10:42)
[2022-05-14] MEDS ORDERED: CALCIUM CARBONATE 500 MG CHEWABLE TAB PO PRN (10:58)
[2022-05-14] MEDS ORDERED: CALCIUM CARBONATE 500 MG CHEWABLE TAB PO STA (14:08)
[2022-05-14] MEDS ORDERED: CITRIC ACID/SODIUM CITRATE 15 ML UDC PO STA (14:10)
--- NOTE | 2022-05-14 14:10 | Labor Progress Brief Note ---
Date of Service May 14, 2022 Subjective comfortable, has heartburn Assessment & Plan (1) Active labor at term: (2) Elderly multigravida: Plan good cx change. will see how arom helps labor. fhts categ 2. occas variable decels. bicitra for heartburn. Admission and Anticipated Discharge Date Admission Date: May 14, 2022 Physical Exam Constitutional: WD/WN, vitals as above Genitourinary: Manual OB Exam: + cervical dilation 8 cm, + cervical effacement 90%, + station 0 and + amniotic fluid (AROM) clear OB Exam Monitor Tracing: + external FHT monitor used, + external uterine monitor used (q3), + category II, + normal FHT variability and + variable decelerations Results & Data ([facility]) Vital Signs (Past 12 Hours) Vital Signs Temp Pulse Resp BP Pulse Ox 05/14/22 14:03 92 05/14/22 14:03 67 05/14/22 12:45 98.1 F 05/14/22 14:00 20 05/14/22 14:00 20 05/14/22 13:58 95 05/14/22 13:58 67 05/14/22 13:53 96 05/14/22 13:53 63 05/14/22 13:53 63 05/14/22 13:53 110/60 05/14/22 13:48 94 05/14/22 13:48 66 05/14/22 13:43 94 05/14/22 13:43 64 05/14/22 13:38 94 05/14/22 13:38 61 05/14/22 13:38 103/58 L 05/14/22 13:33 95 05/14/22 13:33 67 05/14/22 13:28 93 05/14/22 13:28 65 05/14/22 13:23 95 05/14/22 13:23 62 05/14/22 13:23 62 05/14/22 13:23 117/63 05/14/22 13:18 94 05/14/22 13:18 66 05/14/22 13:13 93 05/14/22 13:13 64 05/14/22 13:08 94 05/14/22 13:08 64 05/14/22 13:08 68 05/14/22 13:08 105/60 05/14/22 13:03 94 05/14/22 13:03 67 05/14/22 13:00 20 05/14/22 13:00 20 05/14/22 12:58 93 05/14/22 12:58 63 05/14/22 12:53 94 05/14/22 12:53 75 05/14/22 12:53 111/55 L 05/14/22 12:48 92 05/14/22 12:48 64 05/14/22 12:43 93 05/14/22 12:43 64 05/14/22 12:40 63 05/14/22 12:40 107/56 L 05/14/22 12:38 92 05/14/22 12:38 65 05/14/22 12:33 87 L 05/14/22 12:33 77 05/14/22 12:30 82 L 05/14/22 12:30 74 05/14/22 12:28 90 05/14/22 12:28 75 05/14/22 12:23 93 05/14/22 12:23 84 05/14/22 12:23 104/63 05/14/22 12:18 92 05/14/22 12:18 59 L 05/14/22 12:13 91 05/14/22 12:13 67 05/14/22 12:00 20 05/14/22 12:00 20 05/14/22 12:08 92 05/14/22 12:08 65 05/14/22 12:09 64 05/14/22 12:09 105/61 05/14/22 12:03 90 05/14/22 12:03 73 05/14/22 11:58 92 05/14/22 11:58 68 05/14/22 11:53 92 05/14/22 11:53 67 05/14/22 11:53 89/53 L 05/14/22 11:48 90 05/14/22 11:48 65 05/14/22 11:43 90 05/14/22 11:43 61 05/14/22 11:38 88 L 05/14/22 11:38 61 05/14/22 11:39 58 L 05/14/22 11:39 94/51 L 05/14/22 11:37 83 L 05/14/22 11:37 72 05/14/22 11:33 88 L 05/14/22 11:33 59 L 05/14/22 11:30 20 05/14/22 11:30 20 05/14/22 11:28 88 L 05/14/22 11:28 62 05/14/22 11:00 20 05/14/22 11:00 20 05/14/22 11:25 59 L 05/14/22 11:25 94/53 L 05/14/22 11:23 89 L 05/14/22 11:23 58 L 05/14/22 11:18 92 05/14/22 11:18 58 L 05/14/22 11:13 92 05/14/22 11:13 59 L 05/14/22 11:08 93 05/14/22 11:08 60 05/14/22 11:08 96/48 L 05/14/22 11:03 91 05/14/22 11:03 62 05/14/22 10:58 93 05/14/22 10:58 66 05/14/22 10:53 91 05/14/22 10:53 65 05/14/22 10:52 73 05/14/22 10:52 102/53 L 05/14/22 10:50 20 05/14/22 10:50 20 05/14/22 10:50 64 05/14/22 10:50 104/58 L 05/14/22 10:48 92 05/14/22 10:48 76 05/14/22 10:48 101/58 L 05/14/22 10:37 20 05/14/22 10:37 20 05/14/22 10:45 18 05/14/22 10:45 98.1 F 18 05/14/22 10:46 66 05/14/22 10:46 97/56 L 05/14/22 10:43 94 05/14/22 10:43 80 05/14/22 10:44 68 05/14/22 10:44 109/61 05/14/22 10:42 66 05/14/22 10:42 104/62 05/14/22 10:40 62 05/14/22 10:40 112/59 L 05/14/22 10:38 91 05/14/22 10:38 65 05/14/22 10:38 122/61 05/14/22 10:33 94 05/14/22 10:33 70 05/14/22 10:28 91 05/14/22 10:28 65 05/14/22 10:27 91 05/14/22 10:27 67 05/14/22 10:23 93 05/14/22 10:23 64 05/14/22 10:22 91 05/14/22 10:22 64 05/14/22 10:18 97 05/14/22 10:18 63 05/14/22 10:16 91 05/14/22 10:16 65 05/14/22 10:13 100 05/14/22 10:13 64 05/14/22 10:08 96 05/14/22 10:08 66 05/14/22 08:45 20 05/14/22 08:45 98.4 F 20 05/14/22 08:47 65 131/69 Coding Level of Care Code None Diagnoses Active labor at term Elderly multigravida O09.529
--- NOTE | 2022-05-14 15:22 | Labor Progress Brief Note ---
Date of Service May 14, 2022 Subjective some back pain Assessment & Plan (1) Elderly multigravida: (2) Active labor at term: Plan good cx change. ctx occas spacing, may add pit. fhts categ 1. 2nd stage soon. Admission and Anticipated Discharge Date Admission Date: May 14, 2022 Physical Exam Constitutional: WD/WN, vitals as above Genitourinary: Manual OB Exam: + cervical dilation (rim), + cervical effacement (100) and + station + 1 OB Exam Monitor Tracing: + external FHT monitor used, + external uterine monitor used (q2), + category I and + normal FHT variability Results & Data ([facility]) Vital Signs (Past 12 Hours) Vital Signs Temp Pulse Resp BP Pulse Ox 05/14/22 15:18 96 05/14/22 15:18 70 05/14/22 15:13 96 05/14/22 15:13 61 05/14/22 15:08 97 05/14/22 15:08 64 05/14/22 15:08 64 05/14/22 15:08 104/58 L 05/14/22 15:03 97 05/14/22 15:03 60 05/14/22 15:00 18 05/14/22 15:00 18 05/14/22 14:58 95 05/14/22 14:58 63 05/14/22 14:55 62 05/14/22 14:55 116/61 05/14/22 14:53 97 05/14/22 14:53 59 L 05/14/22 14:48 93 05/14/22 14:48 58 L 05/14/22 14:43 94 05/14/22 14:43 57 L 05/14/22 14:40 57 L 05/14/22 14:40 114/59 L 05/14/22 14:30 98.1 F 05/14/22 14:38 96 05/14/22 14:38 57 L 05/14/22 14:33 94 05/14/22 14:33 57 L 05/14/22 14:30 20 05/14/22 14:30 20 05/14/22 14:28 95 05/14/22 14:28 61 05/14/22 14:23 97 05/14/22 14:23 65 05/14/22 14:23 65 05/14/22 14:23 106/57 L 05/14/22 14:18 94 05/14/22 14:18 60 05/14/22 14:13 95 05/14/22 14:13 74 05/14/22 14:08 94 05/14/22 14:08 70 05/14/22 14:08 109/60 05/14/22 14:03 92 05/14/22 14:03 67 05/14/22 12:45 98.1 F 05/14/22 14:00 20 05/14/22 14:00 20 05/14/22 13:58 95 05/14/22 13:58 67 05/14/22 13:53 96 05/14/22 13:53 63 05/14/22 13:53 63 05/14/22 13:53 110/60 05/14/22 13:48 94 05/14/22 13:48 66 05/14/22 13:43 94 05/14/22 13:43 64 05/14/22 13:38 94 05/14/22 13:38 61 05/14/22 13:38 103/58 L 05/14/22 13:33 95 05/14/22 13:33 67 05/14/22 13:28 93 05/14/22 13:28 65 05/14/22 13:23 95 05/14/22 13:23 62 05/14/22 13:23 62 05/14/22 13:23 117/63 05/14/22 13:18 94 05/14/22 13:18 66 05/14/22 13:13 93 05/14/22 13:13 64 05/14/22 13:08 94 05/14/22 13:08 64 05/14/22 13:08 68 05/14/22 13:08 105/60 05/14/22 13:03 94 05/14/22 13:03 67 05/14/22 13:00 20 05/14/22 13:00 20 05/14/22 12:58 93 05/14/22 12:58 63 05/14/22 12:53 94 05/14/22 12:53 75 05/14/22 12:53 111/55 L 05/14/22 12:48 92 05/14/22 12:48 64 05/14/22 12:43 93 05/14/22 12:43 64 05/14/22 12:40 63 05/14/22 12:40 107/56 L 05/14/22 12:38 92 05/14/22 12:38 65 05/14/22 12:33 87 L 05/14/22 12:33 77 05/14/22 12:30 82 L 05/14/22 12:30 74 05/14/22 12:28 90 05/14/22 12:28 75 05/14/22 12:23 93 05/14/22 12:23 84 05/14/22 12:23 104/63 05/14/22 12:18 92 05/14/22 12:18 59 L 05/14/22 12:13 91 05/14/22 12:13 67 05/14/22 12:00 20 05/14/22 12:00 20 05/14/22 12:08 92 05/14/22 12:08 65 05/14/22 12:09 64 05/14/22 12:09 105/61 05/14/22 12:03 90 05/14/22 12:03 73 05/14/22 11:58 92 05/14/22 11:58 68 05/14/22 11:53 92 05/14/22 11:53 67 05/14/22 11:53 89/53 L 05/14/22 11:48 90 05/14/22 11:48 65 05/14/22 11:43 90 05/14/22 11:43 61 05/14/22 11:38 88 L 05/14/22 11:38 61 05/14/22 11:39 58 L 05/14/22 11:39 94/51 L 05/14/22 11:37 83 L 05/14/22 11:37 72 05/14/22 11:33 88 L 05/14/22 11:33 59 L 05/14/22 11:30 20 05/14/22 11:30 20 05/14/22 11:28 88 L 05/14/22 11:28 62 05/14/22 11:00 20 05/14/22 11:00 20 05/14/22 11:25 59 L 05/14/22 11:25 94/53 L 05/14/22 11:23 89 L 05/14/22 11:23 58 L 05/14/22 11:18 92 05/14/22 11:18 58 L 05/14/22 11:13 92 05/14/22 11:13 59 L 05/14/22 11:08 93 05/14/22 11:08 60 05/14/22 11:08 96/48 L 05/14/22 11:03 91 05/14/22 11:03 62 05/14/22 10:58 93 05/14/22 10:58 66 05/14/22 10:53 91 05/14/22 10:53 65 05/14/22 10:52 73 05/14/22 10:52 102/53 L 05/14/22 10:50 20 05/14/22 10:50 20 05/14/22 10:50 64 05/14/22 10:50 104/58 L 05/14/22 10:48 92 05/14/22 10:48 76 05/14/22 10:48 101/58 L 05/14/22 10:37 20 05/14/22 10:37 20 05/14/22 10:45 18 05/14/22 10:45 98.1 F 18 05/14/22 10:46 66 05/14/22 10:46 97/56 L 05/14/22 10:43 94 05/14/22 10:43 80 05/14/22 10:44 68 05/14/22 10:44 109/61 05/14/22 10:42 66 05/14/22 10:42 104/62 05/14/22 10:40 62 05/14/22 10:40 112/59 L 05/14/22 10:38 91 05/14/22 10:38 65 05/14/22 10:38 122/61 05/14/22 10:33 94 05/14/22 10:33 70 05/14/22 10:28 91 05/14/22 10:28 65 05/14/22 10:27 91 05/14/22 10:27 67 05/14/22 10:23 93 05/14/22 10:23 64 05/14/22 10:22 91 05/14/22 10:22 64 05/14/22 10:18 97 05/14/22 10:18 63 05/14/22 10:16 91 05/14/22 10:16 65 05/14/22 10:13 100 05/14/22 10:13 64 05/14/22 10:08 96 05/14/22 10:08 66 05/14/22 08:45 20 05/14/22 08:45 98.4 F 20 05/14/22 08:47 65 131/69 Coding Level of Care Code None Diagnoses Elderly multigravida O09.529 Active labor at term
[2022-05-14] MEDS ORDERED: miSOPROStoL 200 MCG TAB ONE (16:58)
[2022-05-14] MEDS ORDERED: BENZOCAINE 20% AER SPR 82.5 GM CAN EXT PRN (17:15)
[2022-05-14] MEDS ORDERED: oxyCODONE/ACETAMINOPHEN 5mg/325mg TAB PO PRN (17:15)
[2022-05-14] MEDS ORDERED: DIPHTHERIA/TETANUS/PERTUSSIS 0.5 ML SYR/VIAL IM ONE (17:15)
[2022-05-14] MEDS ORDERED: ACETAMINOPHEN 325 MG TAB PO PRN (17:15)
[2022-05-14] MEDS ORDERED: HYDROCORTISONE ACETATE 25 MG SUPP PR PRN (17:15)
--- NOTE | 2022-05-14 17:17 | Delivery Summary ---
Vaginal Delivery Summary Date of Service May 14, 2022 Vaginal Delivery Summary and 3rd Degree LAC The patient dilated to complete and pushed to deliver a viable female Apgars 8 and 9 via over 3rd degree perineal laceration. Nuchal cord x 1, not easily reduced and delivered through. Mild shoulder dystocia encountered and relieved with Sincere maneuvers and gentle downward traction. Shoulders and body delivered with ease. Infant was vigorous and crying at . Cord clamped at 30 seconds of life and to maternal abdomen where the cord was then doubly clamped and cut. Placenta delivered spontaneously and intact, three- vessel cord. Hemostasis achieved with dilute pitocin, rectal cytotec and uterine massage and drainage of the bladder for approximately 250 cc under sterile conditions. Laceration repaired in usual fashion with 3-0 and 2-0 vicryl in multiple layers. Sphincter reapproximated with interrupted sutures in circumferential fashion. Rectal neg for sutures. Cervix and sulci intact. EBL 500 cc. Mother and baby stable in recovery. Plan abx pp for OASIS injury. Pt aware of laceration and care. [facility] Vaginal Delivery Charge Delivery Type Details: and 3rd Degree LAC
[2022-05-14] MEDS ORDERED: miSOPROStoL 200 MCG TAB PR ONE (17:30)
[2022-05-14] MEDS ORDERED: ceFAZolin 2000MG 2,000 MG/15 ML SYR IV SCH (17:30)
[2022-05-14] MEDS: OXYTOCIN 20 UNITS in LACTATED RINGER'S 1,000 ML IV SCH (17:32)
--- NOTE | 2022-05-14 17:32 | Anesthesia Procedure Note ---
Date of Service May 14, 2022 Anesthesia Post Epidural Note Vital Signs Vital Signs: Temp Pulse Resp BP Pulse Ox 37.1 C 89 20 107/59 L 95 05/14/22 17:08 05/14/22 17:24 05/14/22 17:23 05/14/22 17:24 05/14/22 16:58 Pain Intensity Bilateral Abdomen: Pain Intensity: 2 Notes Mental Status: alert / awake / arousable and participated in evaluation Nausea / Vomiting: adequately controlled Pain: adequately controlled Airway Patency, RR, SpO2: stable & adequate BP & HR: stable & adequate Hydration State: stable & adequate Neuraxial Anesthesia: was administered and sensory block is resolving Anesthetic Complications: no major complications apparent Epidural: Removed without complications and With tip intact
[2022-05-14] MEDS: IBUPROFEN 600 MG TAB PO PRN (19:41)
[2022-05-15] MEDS: IBUPROFEN 600 MG TAB PO PRN ×5 (00:16→18:43)
[2022-05-15] MEDS: DOCUSATE SODIUM 100 MG CAP PO SCH ×2 (00:38→08:28)
[2022-05-15] MEDS: OXYTOCIN 20 UNITS in LACTATED RINGER'S 1,000 ML IV SCH (01:23)
[2022-05-15] MEDS ORDERED: MEASLES, MUMPS & RUBELLA VIRUS VIAL SQ ONE (06:42)
--- NOTE | 2022-05-15 06:45 | Obstetrical Progress Note ---
Date of Service <Christina MillerKen Martinez DO - Last Filed: 05/15/22 07:20> May 15, 2022 Assessment & Plan <Christina MillerKen Martinez DO - Last Filed: 05/15/22 07:20> (1) care following vaginal delivery: Patient is PPD 1 s/p and doing well. - Eating well, voiding well, ambulating well - Vitals reviewed and within normal limits - Pain well controlled with analgesics - OOB, ambulation, diet progression as tolerated - Blood type: O+, GBS neg, rubella nonimmune- immunization ordered - Plan to discharge today or tomorrow pending pt - After discharge, 6 [address] follow up [address] Dr[address] Collazo <Jaz Collazo MD, FACOG - Last Filed: 05/15/22 08:02> (1) care following vaginal delivery: Day #:: 1 Subjective <Christina Moreno DO Michelle - Last Filed: 05/15/22 07:20> Patient is a 41 yo female who is now PPD #1 following spontaneous vaginal delivery at 39+1 weeks. Reports feeling well this morning. She endorses abdomi nal cramping and 5/10 pain well managed on analgesics. Voiding with much stinging and burning. Pt felt intense burning last night and feels like a "stitch may have popped." Tolerating regular meals overnight and able to ambulate some. She has passed gas but no bowel movements. Heavy lochia with little to no improvement this morning. Currently breast feeding. Review of Systems Denies fever, chills, sweats. Denies SOB, difficulty breathing, chest pain, palpitations, and chest pressure. Denies breast pain. Denies dysuria aside from some burning related to her sutures. Denies headache or changes in vision. Physical Exam <Christina Martinez DO - Last Filed: 05/15/22 07:20> General: Alert and oriented. No acute distress. CV: Regular rate and rhythm. No murmurs. Respiratory: CTA bilaterally. No rhonchi, wheezes, or crackles. No increased work of breathing. Abdomen: Positive bowel sounds. Soft, nontender, non distended. Uterus: Fundus firm and palpable 3 cm below the umbilicus. Lower extremities: No LE edema. No deep calf pain. Lillie's negative bilaterally. Results & Data ([facility]) <Christina Martinez DO - Last Filed: 05/15/22 07:20> Vital Signs (Past 12 Hours) Vital Signs Temp Pulse Pulse Resp BP BP Pulse Ox 05/15/22 03:15 36.7 C 68 18 111/72 98 05/15/22 00:00 36.8 C 68 16 117/72 05/14/22 20:00 05/14/22 20:00 37.5 C 65 18 127/77 98 05/14/22 19:39 76 05/14/22 19:39 122/73 05/14/22 19:09 88 05/14/22 19:09 112/56 L O2 Del Method 05/15/22 03:15 Room Air 05/15/22 00:00 05/14/22 20:00 Room Air 05/14/22 20:00 Room Air 05/14/22 19:39 05/14/22 19:39 05/14/22 19:09 05/14/22 19:09 <Jaz Collazo MD, FACOG - Last Filed: 05/15/22 08:02> Co-Signing Physician Notes Resident Physician Supervision Note: I was present with Dr. Martinez during the history and exam. I discussed the case with the resident and agree with the findings and plan as documented in the note. Any exceptions or clarifications are listed here: some nausea, has not eaten regular tray, taking crackers no vomiting. voiding. ambulating. mod lochia. i was called by nursing to use extra pitocin bag last pm. Abd ff 3 down nt, ext nt calves. PPD #1 considering dc today, instructions reveiwed. f/u 6wk pp reviewed. Ordered h/h this am and don't see that it was drawn, nursing to notify lab. Documented By: Jaz Collazo MD, FACOG Resident Activity Tracking <Christina Martinez DO - Last Filed: 05/15/22 07:20> Resident Involvement: Resident Care Provided Care Provided: OB Delivery
[2022-05-15] MEDS ORDERED: PRENATAL VITAMIN 1 TAB PO SCH (08:00)
[2022-05-15] MEDS ORDERED: CYANOCOBALAMIN (B-12) 500 MCG TABLET PO SCH (09:00)
== END 2022-05-15 20:14 | disposition home or self-care (01) | DRG 768 ==
LOC: OPB 08:35 → 4S1 08:37 → 4E2 20:03